=== PATIENT | male | born 1965 | race American Indian/Alaskan Native ===

== ENCOUNTER 2017-03-29 14:18 | Emergency (ER) | payer MEDICAID ==
[2017-03-29 14:48] VITALS: BP 120/76
== END 2017-03-29 14:46 | disposition left against medical advice (07) ==
LOC: ED 14:18
DX: R05 Cough (principal); Z53.21 Procedure and treatment not carried out due to patient leaving prior to being seen by health care provider

== ENCOUNTER 2018-08-01 10:42 | Day surgery (SDC) | payer MEDICAID ==
[~2018-08-01 10:42] MED LIST: NACL 0.9% 1000 ML 1,000 ML IV SCH
--- NOTE | 2018-08-01 12:27 | Anesthesia Consultation ---
Anesthesia Consult and Med Hx Date of service: 08/01/18 - Airway Anesthetic Teeth Evaluation: Good ROM Head & Neck: Inadequate (neck pain) Mental/Hyoid Distance: Adequate Mallampati Class: Class I Intubation Access Assessment: Good - Pulmonary Exam CTA: Yes - Cardiac Exam Cardiac Exam: RRR - Pre-Operative Health Status ASA Pre-Surgery Classification: ASA3 Proposed Anesthetic Plan: MAC - Pre-Anesthesia Comment Pre-Anesthesia Comments: HEP C, HIV - Pulmonary Hx Smoking: Yes - Cardiovascular System Hx Hypertension: Yes Hx Coronary Artery Disease: Yes Hx Heart Attack/AMI: Yes (2014) Hx Angina: No Hx Percutaneous Transluminal Coronary Angioplasty (PTCA): Yes (2014) - Endocrine Hx Liver Disease: Yes (Hep c) - Other Systems Hx Alcohol Use: Yes
--- NOTE | 2018-08-01 12:28 | Anesthesia Day of Surgery ---
Anesthesia Day of Surgery - Day of Surgery Patient Examined: Yes Patient H&P Reviewed: Yes Patient is NPO: Yes
[2018-08-01] MEDS ORDERED: DIPRIVAN 10 MG/ML IV ONE (12:58)
[2018-08-01] MEDS ORDERED: VERSED ONE (13:09)
--- NOTE | 2018-08-01 13:25 | Post Operative Note ---
Date of procedure: 08/01/18 Pre-op diagnosis: screening Post-op diagnosis: same (small colon polyp, few tics, internal hemorrhoids) Findings: 1. small colon polyp removed 2. few small tics 3. internal hemorrhoids Procedure: colonoscopy with biopsy Anesthesia: MAC Surgeon: LUIZA BRENNER Estimated blood loss: minimal Pathology: list (Jar A - transverse colon polyp) Specimen disposition: to lab Condition: stable Disposition: same day
--- NOTE | 2018-08-01 13:27 | Operative Report ---
Operative Report Operative Report: Colonoscopy Procedure Note with Biopsy Date of procedure: 08/01/2018 Endoscopist: Tripp Payan Pre-op diagnosis: Screening for colon cancer Post-op diagnosis: Small colon polyp removed, diverticulosis, internal hemorrhoids Anesthesia: MAC Complications: No immediate complications Estimated blood loss: minimal Procedure: After consent was obtained, the patient was placed in the left lateral decubitus position. The olympus colonoscope was inserted into the patient's rectum under direct vision, and advanced to the cecum without difficulty. The patient tolerated the procedure well. The views of the mucosa were fair. The quality of prep was fair. The patient's vital signs were monitored continuously throughout the procedure. Findings: There was an ~1-2 mm sessile polyp in the transverse colon. The polyp was removed and retrieved with cold biopsy forceps. There were a couple small diverticula in the left side of the colon. Internal hemorrhoids were visualized on retroflexion view. Impression: 1. Small colon polyp removed as above. 2. Mild Diverticulosis 3. Internal hemorrhoids 4. Fair prep Recommendations: -follow up pathology -high fiber diet daily -repeat colonoscopy in 3-5 years (due to fair prep and for surveillance)
[2018-08-01 15:56] VITALS: BP 162/88
== END 2018-08-01 10:43 | disposition home or self-care (01) ==
LOC: GIO 10:42
PROVIDERS: ATTEND Internal Medicine Gastroenterology
DX: Z12.11 Encounter for screening for malignant neoplasm of colon (principal); D12.3 Benign neoplasm of transverse colon; K57.30 Diverticulosis of large intestine without perforation or abscess without bleeding; K64.8 Other hemorrhoids; B18.2 Chronic viral hepatitis C; I25.10 Atherosclerotic heart disease of native coronary artery without angina pectoris; I11.0 Hypertensive heart disease with heart failure; I50.9 Heart failure, unspecified; E78.00 Pure hypercholesterolemia, unspecified; K21.9 Gastro-esophageal reflux disease without esophagitis; M19.90 Unspecified osteoarthritis, unspecified site; F32.9 Major depressive disorder, single episode, unspecified; F41.9 Anxiety disorder, unspecified; Z72.89 Other problems related to lifestyle; Z79.899 Other long term (current) drug therapy; Z87.891 Personal history of nicotine dependence; Z91.81 History of falling; Z98.890 Other specified postprocedural states
CPT/HCPCS: 45380; 88305; J2250; J2704; J7030

== ENCOUNTER 2018-10-29 22:41 | Inpatient (IN) | payer MEDICAID ==
[2018-10-29] MEDS ORDERED: BABY ASPIRIN PO ONE (22:48)
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
[2018-10-29 23:10] LABS: Basophils # (Auto) 0.1 K/mm3 (0.0-0.1); Basophils % (Auto) 1.5 % (0.0-1.8); Eosinophils # (Auto) 0.4 K/mm3 (0.0-0.4); Eosinophils % (Auto) 6.4 % (0.0-4.3); Hematocrit 40.9 % (35.5-45.6); Hemoglobin 14.3 gm/dl (11.8-15.2); Lymphocytes % (Auto) 31.5 % (13.4-35.0); Mean Corpuscular HGB Conc 35 % (32-34); Mean Corpuscular Volume 94 fl (84-94); Monocytes # (Auto) 0.9 K/mm3 (0.0-0.8); Monocytes % (Auto) 14.2 % (0.0-7.3); Platelet Count 136 K/mm3 (140-440); Red Blood Count 4.38 M/mm3 (3.65-5.03); Red Cell Distribution Width 12.8 % (13.2-15.2)
[2018-10-29 23:23] LABS: INR 0.94 (0.87-1.13)
[2018-10-29 23:24] LABS: Partial Thromboplastin Time 26.9 Sec. (24.2-36.6)
[2018-10-29 23:29] LABS: BUN/Creatinine Ratio 34; Blood Urea Nitrogen 24 mg/dL (9-20); Calcium 9.2 mg/dL (8.4-10.2); Hemolysis Index 27
[2018-10-29 23:33] LABS: Alanine Aminotransferase 103 units/L (7-56); Albumin 3.9 g/dL (3.9-5)
[2018-10-29 23:34] LABS: Bilirubin,Direct < 0.2 mg/dL (0-0.2)
--- NOTE | 2018-10-29 23:44 | XRay Report ---
CHEST 1 VIEW INDICATION: Chest Pain. COMPARISON: 07/19/2014. FINDINGS: Support devices: None. Heart: Within normal limits. Lungs/Pleura: No acute air space or interstitial disease. Additional findings: None. IMPRESSION: No acute abnormality. Signer Name: Keshav Nascimento MD Signed: 10/29/2018 11:40 PM Workstation Name: [id number]
--- NOTE | 2018-10-30 01:49 | Cat Scan Report ---
CT abdomen pelvis w con INDICATION: Lower abdominal/groin pain.. TECHNIQUE: All CT scans at this location are performed using the following dose modulation technique: Automated exposure control. CONTRAST: Omnipaque 300, 100 cc IV injection. COMPARISON: None available. CT abdomen: The parenchymal organs are unremarkable in appearance. Negative for abdominal mass, fluid or inflammation. The bowel is not dilated or thickened. The gallbladder is contracted and contains a gallstone. Atherosclerotic calcification involves the ao rta. CT PELVIS: Negative for mass, fluid collection or localized inflammation. The appendix is normal. A right inguinal hernia containing small bowel is nonobstructing. IMPRESSION: 1. Right inguinal hernia contains small bowel, but is nonobstructing. 2. Contracted gallbladder containing gallstone. Signer Name: Keshav Nascimento MD Signed: 10/30/2018 1:44 AM Workstation Name: [id number]
[2018-10-30] MEDS ORDERED: SODIUM CHLORIDE FLUSH SYRINGE 10 ML IV PRN ×2 (02:15)
[2018-10-30] MEDS ORDERED: TYLENOL PO PRN (02:15)
[2018-10-30] MEDS ORDERED: ZOFRAN IV PRN (02:15)
[2018-10-30] MEDS ORDERED: MORPHINE IV PRN (02:15)
[2018-10-30 03:00] LABS: Bilirubin,Urine NEG (Negative); Blood,Urine NEG (Negative); Color,Urine Straw (Yellow); Mucus,Urine FEW /HPF; Protein,Urine <15 mg/dL mg/dL (Negative); Urobilinogen,Urine < 2.0 mg/dL (<2.0); WBC,Urine < 1.0 /HPF (0.0-6.0)
[2018-10-30 03:09] LABS: Amphetamine Screen,Urine PRESUMPTIVE NEGATIVE; Benzodiazepines Screen,Urine PRESUMPTIVE NEGATIVE; Cannabinoid Screen,Urine PRESUMPTIVE NEGATIVE; Cocaine Screen,Urine PRESUMPTIVE NEGATIVE; Methadone Screen,Urine PRESUMPTIVE NEGATIVE; Opiate Screen,Urine PRESUMPTIVE NEGATIVE
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
[2018-10-30] MEDS ORDERED: LEXISCAN IV ONE (08:11)
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
[2018-10-30] MEDS ORDERED: COZAAR PO SCH (10:00)
[2018-10-30] MEDS ORDERED: NON-FORMULARY (Abacavir/Dolutegravir/Lamivudi [Triumeq 600-50-300 Mg Tablet] 1 EACH) PO SCH (10:00)
[2018-10-30] MEDS: LOPRESSOR PO SCH (14:49)
[2018-10-30] MEDS: ATARAX PO SCH (14:49)
[2018-10-30] MEDS: CLARITIN PO SCH (14:49)
[2018-10-30] MEDS: NORVASC PO SCH ×2 (14:49→22:10)
[2018-10-30] MEDS: SODIUM CHLORIDE FLUSH SYRINGE 10 ML IV SCH ×2 (14:50→22:10)
[2018-10-30] MEDS: COZAAR PO SCH (14:50)
[2018-10-30] MEDS: LOVENOX SUB-Q SCH (14:50)
[2018-10-30] MEDS: ALDACTONE PO SCH (15:00)
[2018-10-30] MEDS: BABY ASPIRIN PO SCH (15:00)
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
[2018-10-30] MEDS ORDERED: HALDOL IV PRN (15:39)
[2018-10-30] MEDS ORDERED: ATIVAN IV PRN ×2 (15:39)
[2018-10-30] MEDS: FOLVITE PO SCH (22:10)
[2018-10-30] MEDS: VITAMIN B-1 PO SCH (22:10)
[2018-10-31 04:48] LABS: Hematocrit 41.1 % (35.5-45.6); Hemoglobin 13.7 gm/dl (11.8-15.2); Mean Corpuscular HGB Conc 33 % (32-34); Mean Corpuscular Volume 95 fl (84-94); Platelet Count 113 K/mm3 (140-440); Red Blood Count 4.34 M/mm3 (3.65-5.03); Red Cell Distribution Width 12.8 % (13.2-15.2)
[2018-10-31 05:00] LABS: BUN/Creatinine Ratio 25; Blood Urea Nitrogen 15 mg/dL (9-20); Calcium 8.9 mg/dL (8.4-10.2); Hemolysis Index 18
[2018-10-31 08:03] LABS: Total Cells Counted 100
[2018-10-31 08:04] LABS: Platelet Estimate Consistent w Auto; RBC Morphology Normal
[2018-10-31 08:29] VITALS: BP 127/82
[2018-10-31] MEDS: LOPRESSOR PO SCH (08:59)
[2018-10-31] MEDS: COZAAR PO SCH (09:52)
[2018-10-31] MEDS: FOLVITE PO SCH (09:52)
[2018-10-31] MEDS: VITAMIN B-1 PO SCH (09:52)
[2018-10-31] MEDS: CLARITIN PO SCH (09:52)
[2018-10-31] MEDS: NORVASC PO SCH (09:52)
[2018-10-31] MEDS: ATARAX PO SCH (09:52)
[2018-10-31] MEDS: ALDACTONE PO SCH (09:52)
[2018-10-31] MEDS: BABY ASPIRIN PO SCH (09:52)
[2018-10-31] MEDS: LOVENOX SUB-Q SCH (09:53)
[2018-10-31] MEDS: SODIUM CHLORIDE FLUSH SYRINGE 10 ML IV SCH (09:53)
--- NOTE | 2018-10-31 14:09 | Progress Note ---
Assessment and Plan - Patient Problems (1) Chest pain Current Visit: Yes Status: Acute Plan to address problem: Atypical chest pain. Echocardiogram showed left ventricular ejection fraction 45-50%. Thallium stress test was negative for ischemia. Patient is stable for cardiac discharge, follow-up with my office in 7 days. Advised to return to the emergency room immediately if any recurrent chest pain. Subjective Date of service: 10/31/18 Interval history: Patient is comfortable, ambulating in the hallway on the unit with complaints of chest pain or shortness of breath. He looks and feels well. Objective Vital Signs Temp Pulse Pulse Pulse Resp BP Pulse Ox 10/31/18 10:00 58 L 60 18 97 10/31/18 09:52 60 127/82 10/31/18 08:59 60 127/82 10/31/18 07:25 98.8 F 60 18 127/82 97 10/31/18 04:05 98.0 F 58 L 16 137/72 97 10/30/18 23:18 98.3 F 69 18 120/64 97 10/30/18 22:10 58 L 152/88 10/30/18 21:15 56 L 18 98 10/30/18 19:38 98.5 F 58 L 18 152/85 93 10/30/18 19:26 57 L - Physical Examination General: Appears Well, No Apparent Distress HEENT: Positive: PERRL, EOMI Neck: Positive: neck supple Cardiac: Positive: Reg Rate and Rhythm Lungs: Positive: clear to auscultation Neuro: Positive: Grossly Intact Abdomen: Positive: Unremarkable, Soft Skin: Positive: Clear Extremities: Absent: edema - Labs and Meds CBC 10/31/18 Range/Units 04:09 WBC 3.5 L (4.5-11.0) K/mm3 RBC 4.34 (3.65-5.03) M/mm3 Hgb 13.7 (11.8-15.2) gm/dl Hct 41.1 (35.5-45.6) % Plt Count 113 L (140-440) K/mm3 Comprehensive Metabolic Panel 10/31/18 Range/Units 04:09 Sodium 141 (137-145) mmol/L Potassium 3.9 (3.6-5.0) mmol/L Chloride 104.0 (98-107) mmol/L Carbon Dioxide 28 D (22-30) mmol/L BUN 15 (9-20) mg/dL Creatinine 0.6 L (0.8-1.5) mg/dL Glucose 153 H (75-100) mg/dL Calcium 8.9 (8.4-10.2) mg/dL
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
== END 2018-10-31 16:37 | disposition home or self-care (01) | DRG 391 ==
LOC: ED 22:41 → 4A 10-30 02:15 → OBSVTOIN 10-31 10:51
PROVIDERS: ADMIT Internal Medicine; ATTEND Internal Medicine
DX: K21.9 Gastro-esophageal reflux disease without esophagitis (principal); K85.90 Acute pancreatitis without necrosis or infection, unspecified; F25.9 Schizoaffective disorder, unspecified; I25.10 Atherosclerotic heart disease of native coronary artery without angina pectoris; I11.0 Hypertensive heart disease with heart failure; I50.9 Heart failure, unspecified; E78.5 Hyperlipidemia, unspecified; F10.129 Alcohol abuse with intoxication, unspecified; Y90.9 Presence of alcohol in blood, level not specified; B19.20 Unspecified viral hepatitis C without hepatic coma; Z21 Asymptomatic human immunodeficiency virus [HIV] infection status; Z95.5 Presence of coronary angioplasty implant and graft; Z86.11 Personal history of tuberculosis; Z87.891 Personal history of nicotine dependence; Z82.49 Family history of ischemic heart disease and other diseases of the circulatory system; Z71.41 Alcohol abuse counseling and surveillance of alcoholic
CPT/HCPCS: 36415; 71045; 74177; 78452; 80048; 80076; 80307; 80320; 81001; 83690; 84484; 85007; 85025; 85610; 85730; 93005; 93010; 93017; 93306; 99406; G0378; A9270-GY; A9502; G0480; J1650; J2785; Q9967